=== PATIENT | male | born 1955 | race Hispanic/Latino ===

== ENCOUNTER 2020-06-14 20:53 | Inpatient (IN) | payer OTHER, SELFPAY ==
--- NOTE | ~2020-06-14 | XR_ITS ---
XR chest 1V portable DATE: 06/14/2020 22:04 INDICATION: Hypoxia. Covid 19 positive. TECHNIQUE: Portable AP chest on 06/14/2020 at 2156 hours COMPARISON: None FINDINGS: There are patchy infiltrates involving primarily the mid and lower lung zones, right greate r than left. There is mild elevation of right leaf of diaphragm. Normal heart size. There is aortic unfolding. No hilar or mediastinal enlargement is evident. No pleu ral effusion or pneumothorax. Degenerative spurring of the thoracic spine. IMPRESSION: Patchy bilateral infiltrates Reviewed, dictated and finalized at location A. [facility]
--- NOTE | 2020-06-14 20:56 | ED.SOB ---
HPI - SOB/Dyspnea General Chief Complaint: Shortness of Breath/Dyspnea Stated Complaint: resp distress Time Seen by Provider: 06/14/20 20:56 Source: patient, family and EMS Mode of arrival: EMS Limitations: no limitations History of Present Illness HPI Narrative: The patient is a 64 yo male with a history of HTN who presents to the ER for evaluation of worsening shortness of breath in the setting of COVID diagnosis. Patient with positive COVID swab on 06/11, and patient with increased shortness of breath over the past two days. Patient has had two days of worsening dry cough. Pt has had intermittent fever at night. He is denying chest pain, abdominal pain. No nausea or vomiting. Pt with numerous sick contacts with COVID at home including his and daughters. Pt has been tolerating oral intake at home. No rashes. No diarrhea. Contact for patient is daughter Christi, . Related Data Allergies Allergy/AdvReac Type Severity Reaction Status Date / Time No Known Allergies Allergy Verified 06/14/20 21:24 Review of Systems Review of Systems: Narrative: CONSTITUTIONAL: Intermittent fever and chills EYES: Denies visual changes, redness, or discharge. ENT: Denies rhinorrhea, congestion, sore throat, or otalgia. CARDIOVASCULAR: Denies chest pain, palpitations, or edema. RESPIRATORY: Reports dry cough and shortness of breath GASTROINTESTINAL: Denies abdominal pain, nausea, vomiting, or diarrhea. GENITOURINARY: Denies dysuria or hematuria. SKIN: Denies rash or itching. MUSCULOSKELETAL: Denies back pain, joint pain, or myalgia. NEUROLOGIC: Denies headache, numbness, reports feeling diffusely weak PMFSH Past Medical History Medical History (Updated 06/14/20 @ 21:32 by Laurie Keating MD) Hypertension Prostate cancer Surgical History Surgical History (Updated 06/14/20 @ 21:26 by Laurie Keating MD) H/O prostatectomy Social History Social History (Updated 06/14/20 @ 21:26 by Laurie Keating MD) Smoking status: Never smoker Alcohol intake: never Substance use: never Living arrangements: with family Gender identity (if verbalized by the patient): Male Exam Narrative: Exam Narrative: GENERAL: Awake, alert HEAD: Normocephalic, atraumatic. EYES: 2+ PERRLA and EOMI. ENT: Nares clear, no rhinorrhea or epistaxis. Mucous membranes dry. NECK: Supple. CHEST: Oxygen saturation is 86% room air, patient is tachycardic, tachypneic, no audible wheezing, no use of accessory muscles to breathe HEART: Tachycardic rate, sinus rhythm ABDOMEN:Non distended, non tender EXTREMITIES: Normal range of motion. No edema. SKIN: Warm, dry, no rash. NEURO:No focal deficits. Alert and oriented x3 Course Vital Signs Vital signs: Vital Signs Temperature 37.2 C 06/14/20 21:00 Pulse Rate 122 H 06/14/20 21:00 Respiratory Rate 36 H 06/14/20 21:00 Blood Pressure 137/94 H 06/14/20 21:00 Pulse Oximetry 86 L 06/14/20 21:00 Temperature 37.2 C 06/14/20 21:00 Pulse Rate 91 06/14/20 23:08 Respiratory Rate 33 H 06/14/20 23:08 Blood Pressure 121/83 06/14/20 23:08 Pulse Oximetry 93 06/14/20 23:08 MDM - SOB/Dyspnea MDM Narrative Medical decision making narrative: Patient is a 64-year-old gentleman with history of hypertension who presented for evaluation of shortness of breath in the setting of a recent Covid diagnosis. At the time of assessment, patient is hypoxic, tachypneic, tachycardic. No hypotension. Patient was placed on 4 L oxygen via nasal cannula, was able to be titrated down to 2 L and will maintain oxygen saturations above 93%. Pt remains tachypneic, however this is also improved. Patient was given IV fluids, although he did meet criteria for sepsis, I did not give a 30 mL/kg fluid bolus given we know that more judicious fluids should be given in the setting of Covid. In setting of known viral infection, pt not given antibiotics. No lactic acidosis. Patient has no leukocytosis. He has pa
[2020-06-14 21:00] VITALS: BP 137/94; PULSE 122; RESP 36; TEMP 37.2; O2SAT 86
--- NOTE | 2020-06-14 21:16 | ECG_ITS ---
Measurements Intervals [place] Rate: 109 P: 30 MO: 188 QRS: 12 QRSD: 86 T: 3 QT: 311 QTc: 419 Interpretive Statements SINUS TACHYCARDIA BORDERLINE T WAVE ABNORMALITY- INFERIOR LEADS BASELINE ARTIFACT- V3 ABNORMAL ECG Electronically Signed On 06-15-2020 8:04:59 PIPE TESTER by Jose Erazo D.O.
[2020-06-14] MEDS: SODIUM CHLORIDE 0.9% IV 500 ML 999 ML IV CONT (21:25)
[2020-06-14 21:44] LABS: Alveolar/Arterial O2 Gradient 203.9 mmHg; Base Excess ABG 2.8 mEq/l (+/-2.0); Carboxyhemoglobin 0.8 % THb (0-2.0); Fractional Inspired Oxygen 44 %; HCO3 ABG 25.5 mEq/l (22.0-26.0); Methemoglobin ABG 0.6 %THb (0-1.5); Oxygen Saturation ABG 95.6 % (95.0-100.0); Oxyhemoglobin 93.7 % THb (90.0-100.0); PCO2 ABG 33.8 mmHg (35.0-45.0); PO2 ABG 71.3 mmHg (80.0-100.0); PO2 FiO2 Ratio Arterial Blood 1.62 %; Reduced Hemoglobin 4.9 %THb (0-5.0); Total Hemoglobin 14.4 g/dL (12.0-18.0); pH ABG 7.496 (7.350-7.450)
[2020-06-14 21:45] LABS: Device NASAL CANNULA; Modified Allen's Test Pass; Site Drawn LEFT RADIAL
[2020-06-14 21:48] LABS: Basophils Percent Auto 0.2 % (0.2-1.2); Hemoglobin 14.9 g/dL (14.0-18.0); Immature Granulocyte Absolute 0.05 K/mm3 (0.00-0.031); Immature Granulocyte Percent A 0.8 % (0-0.5); Lymphocytes Percent Auto 12.4 % (18.3-44.2); Mean Corpuscular HGB Conc 34.7 g/dl (32-36); Mean Corpuscular Hemoglobin 30.2 pg (26-34); Mean Corpuscular Volume 87.2 fl (80-100); Mean Platelet Volume 9.7 fl (7.4-10.4); Monocytes Absolute Auto 0.5 K/mm3 (0.1-0.6); Monocytes Percent Auto 7.1 % (2.6-8.5); Neutrophils Absolute Auto 5.2 K/mm3 (1.3-6.7); Neutrophils Percent Auto 79.5 % (45.5-73.1); Platelet Count Result 246 k/mm3 (150-375); Red Blood Count 4.93 M/mm3 (4.6-6.20); Red Cell Distribution Width 12.4 % (11.5-14.5); White Blood Count 6.5 K/mm3 (4.5-10.0)
[2020-06-14 21:57] LABS: INR 1.1; Prothrombin Time 14.3 Seconds (11.1-14.7)
[2020-06-14 21:58] LABS: Partial Thromboplastin Time 37.2 SECONDS (22.3-36.8)
[2020-06-14 22:02] LABS: Lactic Acid Reflex 1.4 mmol/L (0.7-2.1)
[2020-06-14 22:09] LABS: Alanine Aminotransferase 98 U/L (4-50); Albumin Level 3.8 g/dL (3.5-5.1); Alkaline Phosphatase 91 U/L (38-126); Anion Gap 9 mmol/L (8-16); Aspartate Amino Transferase 140 U/L (17-59); Blood Urea Nitrogen 19 mg/dL (9-20); Calcium 8.5 mg/dL (8.4-10.2); Carbon Dioxide 27 mmol/L (22-30); Chloride 96 mmol/L (98-107); Estimated CRCL calculation 75 ml/min; Estimated Glomerular Filt Rate > 60; Glucose 134 mg/dL (75-110); Lactate Dehydrogenase 1292 U/L (313-618); Potassium 4.1 mmol/L (3.4-5.0); Sodium 132 mmol/L (137-145)
[2020-06-14 22:14] LABS: NT Pro B Type Natriuretic Pept 113 PG/ML (5-100); Troponin I < 0.012 ng/mL (0.000-0.034)
[2020-06-14 22:59] LABS: CRP 30.8 mg/dL (<1.0)
[2020-06-14 23:08] VITALS: BP 121/83; PULSE 91; RESP 33; O2SAT 93
[2020-06-14 23:29] LABS: Add Urine Microscopic? YES; Appearance Urine Clear (Clear); Bilirubin Urine Negative (Negative); Blood Urine Negative (Negative); Color Urine Amber (Yellow); Glucose Urine UA Negative (Negative); Ketones Urine Negative (Negative); Leukocyte Esterase Ur Negative LEU/UL (Negative); Mucus Urine Moderate /lpf; Nitrate Urine Negative (Negative); Protein Urine 2+ mg/dL (Negative); RBC Urine 0-2 /hpf (0-2); Squamous Epithelial Cell Urine Rare /hpf (Few); WBC Urine 0-3 /hpf
[2020-06-14 23:43] VITALS: BP 114/73; PULSE 87; RESP 28; TEMP 36.9; O2SAT 94
[2020-06-15] VITALS (17 sets, daily range): BP systolic 119–144; BP diastolic 65–91; PULSE 69–108; RESP 16–28; TEMP 36.4–36.9; O2SAT 90–96
--- NOTE | 2020-06-15 01:03 | ADMGEN ---
This patient, Phil Solis, was admitted to [facility] Surg Room 324-01. Patient/family oriented to hospital policies and general routines including ID bracelet, bed and alarms, visiting hours, pain management, procedures, bathroom and other care routines, personal items, smoking policy, room service/diet, and visiting hours. Information on how to activate the Rapid Response Team has been discussed. Patient/Family are encouraged to report perceived risks to care and to ask questions if they do not understand what they are told or what they should do.
--- NOTE | 2020-06-15 01:16 | PM.IMHP ---
H&P: HPI History of Present Illness Date/Time: 06/15/20 01:16 Chief complaint: COVID 19 Pneumonia,Hypoxic Respiratory Failure Narrative: This is a 64-year-old male with very limited Maori-speaking who is known to have hypertension and hyperlipidemia presented to the hospital with a complaint increased shortness of breath and a poorly productive cough. The patient was recently diagnosed with COVID-19 on June 11, 2020 and over the past couple of days he has had increased worsening shortness of breath. Associated symptoms include diaphoresis, generalized weakness, and intermittent fevers. He can't tell me exactly how many days he has been sick but he believes that is less than 10 days. He reports that multiple family members at home are sick with COVID-19. Tonight he denies any chest pain, abdominal pain, nausea, vomiting, dysuria, hematuria, diarrhea, rectal bleeding, or lower extremity swelling. He denies any past history of tobacco use and he used to drink alcohol but states that he quit drinking 2 years ago. The patient was evaluated emergency room this evening and found to be hypoxic on room air. He was placed on 2 L of oxygen via nasal cannula and treated with bronchodilators and dexamethasone. The patient states he is feeling a little bit better now. He has no other complaints at this time we been asked admit the patient to the hospital for further care. Review of Systems Review of Systems: All systems reviewed & are unremarkable except as noted in HPI and below PMFSH Past Medical History Medical History Hyperlipidemia Hypertension Prostate cancer Surgical History Surgical History H/O prostatectomy Family History Family History Mother Hypertension Father Hypertension Social History Social History Smoking status: Never smoker Alcohol intake: never Substance use: never Substance use type: does not use Living arrangements: with family Gender identity (if verbalized by the patient): Male Sexual Orientation (if Verbalized by the Patient): Straight or Heterosexual Spiritual care concerns: No Meds Home Medications and Allergies Home Medications Medication Instructions Recorded Confirmed Type lisinopril 10 mg PO DAILY 06/15/20 06/15/20 History meloxicam 7.5 mg PO DAILY 06/15/20 06/15/20 History simvastatin 20 mg PO DAILY 06/15/20 06/15/20 History Allergies Allergy/AdvReac Type Severity Reaction Status Date / Time No Known Allergies Allergy Verified 06/15/20 00:52 Vital Signs Vital Signs - 24 hr 06/14/20 21:00 06/14/20 23:08 06/14/20 23:43 Temperature 37.2 C 36.9 C Pulse Rate 122 H 91 87 Respiratory Rate 36 H 33 H 28 H Blood Pressure 137/94 H 121/83 114/73 Pulse Oximetry 86 L 93 94 06/15/20 00:22 06/15/20 01:12 Temperature 36.9 C Pulse Rate 94 Respiratory Rate 28 H Blood Pressure 119/78 Pulse Oximetry 94 93 Exam Const: General: cooperative, alert, awake, diaphoretic, ill appearing, tired appearing and uncomfortable Nutritional Appearance: obese Orientation/consciousness: patient oriented x3 HENMT: Head: normal to inspection General nose exam: Normal external nose present Face and sinus: normal facial exam Mouth: Yes Normal oral and palatal mucosa present and Yes oropharynx normal Eyes: Pupils: Equal, round and reactive pupils present EOM: EOMs intact bilaterally Neck: Neck: supple and no JVD Thyroid: thyroid normal Lymphatic: lymphadenopathy not noted Resp: Effort & Inspection: normal respiratory effort Auscultation: diminished lung sounds Cardio: Rate: regular rate Rhythm: regular rhythm Heart sounds: no murmurs GI: Inspection: normal to inspection Auscultation: normal bowel sounds Skin: General skin exam: normal
[2020-06-15] MEDS: REMDESIVIR 200 MG/NS 250 ML 200 MG/250 ML BAG 250 MG IVPB (04:20)
[2020-06-15 08:16] LABS: Basophils Percent Auto 0.4 % (0.2-1.2); Eosinophils Absolute Auto 0.1 K/mm3 (0-0.3); Eosinophils Percent Auto 1.2 % (0-4.4); Hematocrit 46.7 % (42.0-52.0); Hemoglobin 16.3 g/dL (14.0-18.0); Immature Granulocyte Absolute 0.05 K/mm3 (0.00-0.031); Immature Platelet Fraction Pct 5.2 % (0.9-11.2); Lymphocytes Absolute Auto 0.63 K/mm3 (0.9-3.2); Mean Corpuscular HGB Conc 34.9 g/dl (32-36); Mean Corpuscular Hemoglobin 30.9 pg (26-34); Mean Corpuscular Volume 88.4 fl (80-100); Mean Platelet Volume 11.4 fl (7.4-10.4); Monocytes Absolute Auto 0.2 K/mm3 (0.1-0.6); Monocytes Percent Auto 3.7 % (2.6-8.5); Neutrophils Absolute Auto 3.9 K/mm3 (1.3-6.7); Neutrophils Percent Auto 80.7 % (45.5-73.1); Platelet Count Result 227 k/mm3 (150-375); Red Blood Count 5.28 M/mm3 (4.6-6.20); Red Cell Distribution Width 12.6 % (11.5-14.5); White Blood Count 4.8 K/mm3 (4.5-10.0)
[2020-06-15] MEDS: ENOXAPARIN 40 MG/0.4 ML SYRINGE SUB-Q (09:32)
[2020-06-15] MEDS: lisinopriL 10 MG TABLET PO (09:32)
[2020-06-15] MEDS: SIMVASTATIN 20 MG TABLET PO (09:32)
[2020-06-15 10:57] LABS: Influenza Control Positive
[2020-06-15 11:18] LABS: Anion Gap 14 mmol/L (8-16); Blood Urea Nitrogen 21 mg/dL (9-20); Carbon Dioxide 24 mmol/L (22-30); Chloride 99 mmol/L (98-107); Estimated CRCL calculation 83 ml/min; Estimated Glomerular Filt Rate > 60; Glucose 238 mg/dL (75-110); Magnesium 2.4 mg/dL (1.6-2.3); Potassium 3.7 mmol/L (3.4-5.0); Sodium 137 mmol/L (137-145)
[2020-06-15 11:53] LABS: Alanine Aminotransferase 93 U/L (4-50)
--- NOTE | 2020-06-15 12:37 | P.PNIM_ITS ---
Progress Note: A&P Assessment and Plan (1) Respiratory failure with hypoxia: Qualifiers: Chronicity: acute Qualified Code(s): J96.01 - Acute respiratory failure with hypoxia <Sheri Jitendra. Fraciscoac, PA-C - Last Filed: 06/15/20 13:06> Code(s): J96.91 - Respiratory failure, unspecified with hypoxia <Sheri Serge Stimac, PA-C - Last Filed: 06/15/20 13:06> Status: Acute <Sheri Serge Stimac, PA-C - Last Filed: 06/15/20 13:06> Assessment and Plan: At presentation, patient noted to be hypoxic at 86%. Secondary to COVID-19 pneumonia. Influenza negative. * Continue supplemental O2 as needed with goal saturation 90% or above. Wean to goal. * Continue with treatment for COVID-19 as detailed below. <Sheri JitendraTiffany Stimac, PA-C - Last Filed: 06/15/20 13:06> (2) Pneumonia due to 2019 novel coronavirus: Code(s): U07.1 - COVID-19; J12.89 - Other viral pneumonia <Sheri J. Stimac, PA-C - Last Filed: 06/15/20 13:06> Status: Acute <Sheri Serge Stimac, PA-C - Last Filed: 06/15/20 13:06> Assessment and Plan: Patient had been having symptoms ongoing approximately 3 days prior to presentation. Tested positive on 06/14/2020. Chest x-ray showed patchy bilateral infiltrates consistent with COVID-19. he is maintaining adequate oxygen saturations on 4 L per nasal cannula. He has been removing the nasal cannula frequently and I instructed him to leave this on. * Continue isolation precautions * continue Remdesivir for up to 5 days. Started on 06/15 * continue dexamethasone for up to 10 days. Started on 06/14. * Supportive care with bronchodilators, expectorants, and antipyretics. * supplemental O2 as above. Wean to goal. * Trend acute phase reactants <Sheri JitendraTiffany Fraciscoac, PA-C - Last Filed: 06/15/20 13:06> (3) Elevated liver enzymes: Code(s): R74.8 - Abnormal levels of other serum enzymes <Sheri J. Stimac, PA-C - Last Filed: 06/15/20 13:06> Status: Acute <JENELLE Cintron-C - Last Filed: 06/15/20 13:06> Assessment and Plan: Likely secondary to COVID-19 virus. ALT is mildly elevated, but less than 2x upper limit of normal and improving. LFTs will be monitored closely in light of remdesivir therapy and will be stopped should ALT exceed 5x upper limit of normal. Patient has no signs or symptoms of liver injury. Total bili is wnl. <YANCI CintronC - Last Filed: 06/15/20 13:06> (4) Hyperlipidemia: Qualifiers: Hyperlipidemia type: unspecified Qualified Code(s): E78.5 - Hyperlipidemia, unspecified <JENELLE Cintron-C - Last Filed: 06/15/20 13:06> Code(s): E78.5 - Hyperlipidemia, unspecified <JENELLE Cintron-C - Last Filed: 06/15/20 13:06> Status: Chronic <JENELLE Cintron-C - Last Filed: 06/15/20 13:06> Assessment and Plan: Continue simvastatin PO. <JENELLE Cintron-C - Last Filed: 06/15/20 13:06> (5) Hypertension: Qualifiers: Hypertension type: unspecified Qualified Code(s): I10 - Essential (primary) hypertension <YANCI CintronC - Last Filed: 06/15/20 13:06> Code(s): I10 - Essential (primary) hypertension <Sheri Moody JENELLE-C - Last Filed: 06/15/20 13:06> Status: Chronic <JENELLE Cintron-C - Last Filed: 06/15/20 13:06> Assessment and Plan: Blood pressure evaluated today and is stable at 144/89. * Continue lisinopril <Sheri Moody JENELLE-C - Last Filed: 06/15/20 13:06> (6) Generalized weakness: Code(s): R53.1
--- NOTE | 2020-06-15 12:37 | PM.IMPN ---
Progress Note: A&P Assessment and Plan (1) Respiratory failure with hypoxia: Qualifiers: Chronicity: acute Qualified Code(s): J96.01 - Acute respiratory failure with hypoxia <Sheri Moody, PA-C - Last Filed: 06/15/20 13:06> Code(s): J96.91 - Respiratory failure, unspecified with hypoxia <Sheridanika Moody, PA-C - Last Filed: 06/15/20 13:06> Status: Acute <Sheri Moody, PA-C - Last Filed: 06/15/20 13:06> Assessment and Plan: At presentation, patient noted to be hypoxic at 86%. Secondary to COVID-19 pneumonia. Influenza negative. Continue supplemental O2 as needed with goal saturation 90% or above. Wean to goal. Continue with treatment for COVID-19 as detailed below. <Sheri HamTiffany Fransisco, PA-C - Last Filed: 06/15/20 13:06> (2) Pneumonia due to 2019 novel coronavirus: Code(s): U07.1 - COVID-19; J12.89 - Other viral pneumonia <Sheri Serge Yapac, PA-C - Last Filed: 06/15/20 13:06> Status: Acute <Sheri Moody, PA-C - Last Filed: 06/15/20 13:06> Assessment and Plan: Patient had been having symptoms ongoing approximately 3 days prior to presentation. Tested positive on 06/14/2020. Chest x-ray showed patchy bilateral infiltrates consistent with COVID-19. he is maintaining adequate oxygen saturations on 4 L per nasal cannula. He has been removing the nasal cannula frequently and I instructed him to leave this on. Continue isolation precautions continue Remdesivir for up to 5 days. Started on 06/15 continue dexamethasone for up to 10 days. Started on 06/14. Supportive care with bronchodilators, expectorants, and antipyretics. supplemental O2 as above. Wean to goal. Trend acute phase reactants <Sheri HamTiffany Fraciscoelyse, PA-C - Last Filed: 06/15/20 13:06> (3) Elevated liver enzymes: Code(s): R74.8 - Abnormal levels of other serum enzymes <Sheri HamTiffany Fraciscoelyse, PA-C - Last Filed: 06/15/20 13:06> Status: Acute <Sheri YapJENELLE pappas-C - Last Filed: 06/15/20 13:06> Assessment and Plan: Likely secondary to COVID-19 virus. ALT is mildly elevated, but less than 2x upper limit of normal and improving. LFTs will be monitored closely in light of remdesivir therapy and will be stopped should ALT exceed 5x upper limit of normal. Patient has no signs or symptoms of liver injury. Total bili is wnl. <Sheri Valentine YANCI MoodyC - Last Filed: 06/15/20 13:06> (4) Hyperlipidemia: Qualifiers: Hyperlipidemia type: unspecified Qualified Code(s): E78.5 - Hyperlipidemia, unspecified <Sheri Valentine JENELLE Moody-C - Last Filed: 06/15/20 13:06> Code(s): E78.5 - Hyperlipidemia, unspecified <Sheri Valentine JENELLE Moody-C - Last Filed: 06/15/20 13:06> Status: Chronic <Sheri Valentine JENELLE Moody-C - Last Filed: 06/15/20 13:06> Assessment and Plan: Continue simvastatin PO. <Sheri HamJENELLE Garza-C - Last Filed: 06/15/20 13:06> (5) Hypertension: Qualifiers: Hypertension type: unspecified Qualified Code(s): I10 - Essential (primary) hypertension <Sheri HamJENELLE Garza-C - Last Filed: 06/15/20 13:06> Code(s): I10 - Essential (primary) hypertension <Sheri HamJENELLE Garza-C - Last Filed: 06/15/20 13:06> Status: Chronic <Sheri YapJENELLE pappas-C - Last Filed: 06/15/20 13:06> Assessment and Plan: Blood pressure evaluated today and is stable at 144/89. Continue lisinopril <Sheri JitendraJENELLE Garza-C - Last Filed: 06/15/20 13:06> (6) Generalized weakness: Code(s): R53.1 - Weakness <Sheri JitendraJENELLE Garza-C - Last Filed: 06/15/20 13:06> Status: Acute <Sheri Serge Moody PA-C - Last Filed: 06/15/20 13:06> Assessment and Plan: Patient's daughter notes that he has been quite weak since onset of symptoms. Likely secondary to acute viral infection. Patient himself denies concerns. Sarah
[2020-06-15] MEDS: DEXAMETHASONE SOD PHOS INJ 4 MG/ML VIAL 6 MG IV PUSH (13:14)
[2020-06-16] VITALS (17 sets, daily range): BP systolic 109–142; BP diastolic 69–80; PULSE 75–104; RESP 18–22; TEMP 36.1–36.5; O2SAT 90–94
[2020-06-16] MEDS: REMDESIVIR 100 MG/NS 250 ML 100 MG/250 ML BAG 250 MG IVPB (05:35)
[2020-06-16 06:30] LABS: Hematocrit 41.4 % (42.0-52.0); Mean Corpuscular HGB Conc 33.8 g/dl (32-36); Mean Corpuscular Hemoglobin 29.9 pg (26-34); Mean Corpuscular Volume 88.5 fl (80-100); Mean Platelet Volume 9.5 fl (7.4-10.4); Platelet Count Result 309 k/mm3 (150-375); Red Blood Count 4.68 M/mm3 (4.6-6.20); Red Cell Distribution Width 12.4 % (11.5-14.5); White Blood Count 9.8 K/mm3 (4.5-10.0)
[2020-06-16 08:51] LABS: Alanine Aminotransferase 75 U/L (4-50); Albumin Level 3.5 g/dL (3.5-5.1); Alkaline Phosphatase 75 U/L (38-126); Anion Gap 7 mmol/L (8-16); Aspartate Amino Transferase 66 U/L (17-59); Bilirubin,Total 0.6 mg/dL (0.2-1.3); Blood Urea Nitrogen 28 mg/dL (9-20); CRP 17.4 mg/dL (<1.0); Calcium 8.7 mg/dL (8.4-10.2); Carbon Dioxide 30 mmol/L (22-30); Chloride 100 mmol/L (98-107); Estimated CRCL calculation 92 ml/min; Estimated Glomerular Filt Rate > 60; Glucose 182 mg/dL (75-110); Lactate Dehydrogenase 792 U/L (313-618); Sodium 137 mmol/L (137-145)
[2020-06-16] MEDS: DEXAMETHASONE SOD PHOS INJ 4 MG/ML VIAL 6 MG IV PUSH (09:25)
[2020-06-16] MEDS: ENOXAPARIN 40 MG/0.4 ML SYRINGE SUB-Q (09:25)
[2020-06-16] MEDS: lisinopriL 10 MG TABLET PO (09:25)
[2020-06-16 12:08] LABS: Hemoglobin A1C 5.7 % (<5.7)
--- NOTE | 2020-06-16 15:51 | P.PNIM_ITS ---
Progress Note: A&P Assessment and Plan (1) Respiratory failure with hypoxia: Qualifiers: Chronicity: acute Qualified Code(s): J96.01 - Acute respiratory failure with hypoxia <Sheridanika Moody, PA-C - Last Filed: 06/16/20 16:02> Code(s): J96.91 - Respiratory failure, unspecified with hypoxia <Sheri Serge Yapac, PA-C - Last Filed: 06/16/20 16:02> Status: Acute <Sheri Serge Stimac, PA-C - Last Filed: 06/16/20 16:02> Assessment and Plan: At presentation, patient noted to be hypoxic at 86%. [place] to be secondary to COVID-19 pneumonia. Influenza negative. * Continue supplemental O2 as needed with goal saturation 90% or above. Wean to goal. * Continue with treatment for COVID-19 as detailed below. <Sheri HamTiffany Fransisco, PA-C - Last Filed: 06/16/20 16:02> (2) Pneumonia due to 2019 novel coronavirus: Code(s): U07.1 - COVID-19; J12.89 - Other viral pneumonia <Sheri Serge Stimac, PA-C - Last Filed: 06/16/20 16:02> Status: Acute <Sheridanika Yapac, PA-C - Last Filed: 06/16/20 16:02> Assessment and Plan: Patient had been having symptoms ongoing approximately 3 days prior to presentation. Tested positive on 06/14/2020. Chest x-ray showed patchy bilateral infiltrates consistent with COVID-19. He is maintaining adequate oxygen saturations on 4 L per nasal cannula. * Continue isolation precautions * continue Remdesivir for up to 5 days. Started on 06/15 * continue dexamethasone for up to 10 days. Started on 06/14. * Supportive care with bronchodilators, expectorants, and antipyretics. * supplemental O2 as above. Wean to goal. * Trend acute phase reactants <Sheri HamTiffany Fraciscoelyse, PA-C - Last Filed: 06/16/20 16:02> (3) Elevated liver enzymes: Code(s): R74.8 - Abnormal levels of other serum enzymes <Sheri J. Fraciscoac, PA-C - Last Filed: 06/16/20 16:02> Status: Acute <JENELLE Cintron-C - Last Filed: 06/16/20 16:02> Assessment and Plan: Likely secondary to COVID-19 virus. ALT is mildly elevated, but less than 2x upper limit of normal and has improved. LFTs will be monitored closely in light of remdesivir therapy and will be stopped should ALT exceed 5x upper limit of normal. Patient has no signs or symptoms of liver injury. Total bili is wnl. <Sheri Moody JENELLE-C - Last Filed: 06/16/20 16:02> (4) Hyperlipidemia: Qualifiers: Hyperlipidemia type: unspecified Qualified Code(s): E78.5 - Hyperlipidemia, unspecified <Sheri Moody JENELLE-C - Last Filed: 06/16/20 16:0 2> Code(s): E78.5 - Hyperlipidemia, unspecified <Sheri Moody JENELLE-C - Last Filed: 06/16/20 16:02> Status: Chronic <Sheri Moody JENELLE-C - Last Filed: 06/16/20 16:02> Assessment and Plan: Continue simvastatin PO. <Sheri Moody JENELLE-C - Last Filed: 06/16/20 16:02> (5) Hypertension: Qualifiers: Hypertension type: unspecified Qualified Code(s): I10 - Essential (primary) hypertension <Sheri Moody JENELLE-C - Last Filed: 06/16/20 16:02> Code(s): I10 - Essential (primary) hypertension <Sheri Yapelyse JENELLE-C - Last Filed: 06/16/20 16:02> Status: Chronic <Sheri Moody JENELLE-C - Last Filed: 06/16/20 16:02> Assessment and Plan: Blood pressure evaluated today and is stable at 142/80. * Continue lisinopril <Sheri Yapelyse JENELLE-C - Last Filed: 06/16/20 16:02> (6) Generalized weakness: Code(s): R53.1 - Weakness <Sheri Yapelyse JENELLE-C - Last Filed: 06/16/20 16:02>
--- NOTE | 2020-06-16 15:51 | PM.IMPN ---
Progress Note: A&P Assessment and Plan (1) Respiratory failure with hypoxia: Qualifiers: Chronicity: acute Qualified Code(s): J96.01 - Acute respiratory failure with hypoxia <Sheri JTiffany Fraciscoelyse, PA-C - Last Filed: 06/16/20 16:02> Code(s): J96.91 - Respiratory failure, unspecified with hypoxia <Sheri JitendraTiffany Stimac, PA-C - Last Filed: 06/16/20 16:02> Status: Acute <Sheri Serge Stimac, PA-C - Last Filed: 06/16/20 16:02> Assessment and Plan: At presentation, patient noted to be hypoxic at 86%. [place] to be secondary to COVID-19 pneumonia. Influenza negative. Continue supplemental O2 as needed with goal saturation 90% or above. Wean to goal. Continue with treatment for COVID-19 as detailed below. <Sheri JitendraTiffany Moody, PA-C - Last Filed: 06/16/20 16:02> (2) Pneumonia due to 2019 novel coronavirus: Code(s): U07.1 - COVID-19; J12.89 - Other viral pneumonia <Sheri JitendraTiffany Stimac, PA-C - Last Filed: 06/16/20 16:02> Status: Acute <Sheri JitendraTiffany Stimac, PA-C - Last Filed: 06/16/20 16:02> Assessment and Plan: Patient had been having symptoms ongoing approximately 3 days prior to presentation. Tested positive on 06/14/2020. Chest x-ray showed patchy bilateral infiltrates consistent with COVID-19. He is maintaining adequate oxygen saturations on 4 L per nasal cannula. Continue isolation precautions continue Remdesivir for up to 5 days. Started on 06/15 continue dexamethasone for up to 10 days. Started on 06/14. Supportive care with bronchodilators, expectorants, and antipyretics. supplemental O2 as above. Wean to goal. Trend acute phase reactants <Sheri JitendraTiffany Fraciscoelyse, PA-C - Last Filed: 06/16/20 16:02> (3) Elevated liver enzymes: Code(s): R74.8 - Abnormal levels of other serum enzymes <Sheri J. Stimac, PA-C - Last Filed: 06/16/20 16:02> Status: Acute <Sheri J. Stimac, PA-C - Last Filed: 06/16/20 16:02> Assessment and Plan: Likely secondary to COVID-19 virus. ALT is mildly elevated, but less than 2x upper limit of normal and has improved. LFTs will be monitored closely in light of remdesivir therapy and will be stopped should ALT exceed 5x upper limit of normal. Patient has no signs or symptoms of liver injury. Total bili is wnl. <Sheri JTiffany Moody PA-C - Last Filed: 06/16/20 16:02> (4) Hyperlipidemia: Qualifiers: Hyperlipidemia type: unspecified Qualified Code(s): E78.5 - Hyperlipidemia, unspecified <Sheri JitendraTiffany Moody PA-C - Last Filed: 06/16/20 16:02> Code(s): E78.5 - Hyperlipidemia, unspecified <Sheri HamYANCI GarzaC - Last Filed: 06/16/20 16:02> Status: Chronic <Sheri Moody PA-C - Last Filed: 06/16/20 16:02> Assessment and Plan: Continue simvastatin PO. <Sheri JitendraYANCI GarzaC - Last Filed: 06/16/20 16:02> (5) Hypertension: Qualifiers: Hypertension type: unspecified Qualified Code(s): I10 - Essential (primary) hypertension <Sheri Moody PA-C - Last Filed: 06/16/20 16:02> Code(s): I10 - Essential (primary) hypertension <YANCI CintronC - Last Filed: 06/16/20 16:02> Status: Chronic <Sheri JitendraYANCI GarzaC - Last Filed: 06/16/20 16:02> Assessment and Plan: Blood pressure evaluated today and is stable at 142/80. Continue lisinopril <Sheri Moody PA-C - Last Filed: 06/16/20 16:02> (6) Generalized weakness: Code(s): R53.1 - Weakness <YANCI CintronC - Last Filed: 06/16/20 16:02> Status: Acute <Sheri Moody PA-C - Last Filed: 06/16/20 16:02> Assessment and Plan: Patient's daughter notes that he has been quite weak since onset of symptoms. Likely secondary to acute viral infection. Patient himself denies concerns of weakness. Appreciate PT and OT eval. <Sheri Moody PA-C - Last Hardik
[2020-06-16] MEDS: SIMVASTATIN 20 MG TABLET PO (20:44)
[2020-06-17] VITALS (13 sets, daily range): BP systolic 117–129; BP diastolic 70–87; PULSE 80–104; RESP 18–22; TEMP 36.4–36.9; O2SAT 90–94
[2020-06-17] MEDS: REMDESIVIR 100 MG/NS 250 ML 100 MG/250 ML BAG 250 MG IVPB (05:33)
[2020-06-17 07:14] LABS: Hematocrit 42.4 % (42.0-52.0); Hemoglobin 14.5 g/dL (14.0-18.0); Mean Corpuscular HGB Conc 34.2 g/dl (32-36); Mean Corpuscular Hemoglobin 30.6 pg (26-34); Mean Corpuscular Volume 89.5 fl (80-100); Mean Platelet Volume 9.3 fl (7.4-10.4); Platelet Count Result 366 k/mm3 (150-375); Red Blood Count 4.74 M/mm3 (4.6-6.20); Red Cell Distribution Width 12.6 % (11.5-14.5)
[2020-06-17 07:59] LABS: Alanine Aminotransferase 66 U/L (4-50); Albumin Level 3.6 g/dL (3.5-5.1); Alkaline Phosphatase 76 U/L (38-126); Aspartate Amino Transferase 50 U/L (17-59); Bilirubin,Total 0.7 mg/dL (0.2-1.3); Blood Urea Nitrogen 24 mg/dL (9-20); Calcium 8.6 mg/dL (8.4-10.2); Carbon Dioxide 30 mmol/L (22-30); Estimated CRCL calculation 83 ml/min; Estimated Glomerular Filt Rate > 60; Glucose 131 mg/dL (75-110); Lactate Dehydrogenase 730 U/L (313-618)
[2020-06-17 08:39] LABS: Anion Gap 7 mmol/L (8-16); Chloride 102 mmol/L (98-107); Potassium 4.1 mmol/L (3.4-5.0); Sodium 139 mmol/L (137-145)
[2020-06-17] MEDS: ENOXAPARIN 40 MG/0.4 ML SYRINGE SUB-Q ×2 (09:10→20:18)
[2020-06-17] MEDS: DEXAMETHASONE SOD PHOS INJ 4 MG/ML VIAL 6 MG IV PUSH (09:10)
[2020-06-17] MEDS: lisinopriL 10 MG TABLET PO (09:10)
--- NOTE | 2020-06-17 13:58 | PM.IMPN ---
Progress Note: A&P Assessment and Plan (1) Respiratory failure with hypoxia: Qualifiers: Chronicity: acute Qualified Code(s): J96.01 - Acute respiratory failure with hypoxia Code(s): J96.91 - Respiratory failure, unspecified with hypoxia Status: Acute Assessment and Plan: Secondary to COVID-19 pneumonia. Admit to med-surg, Continue oxygen supplementation. Continuous pulse oximetry. Wean off of oxygen when possible. Continue treatment for COVID-19. Monitor ABG. RT assess and treat. 06/17/20 13:58 Patient is 64-year-old [place] male who initially exposed to COVID-19 on June 01 develops symptoms and was tested on June 04 and was positive, he came to emergency department on June 14 with hypoxia with oxygen saturation on the room air of 86%, he was started on Remdesivir on 06/15 today 09/21 and dexamethasone 06/15 today 09/26, he has not not have fever since arrival and initially he was placed on 6 L of oxygen and today patient is without oxygen moving alone in the room without any difficulty, patient only speaks Gren[place], he does not appear in any distress, I have spoken to his daughter who speaks Armenian, if the patient remains clinically stable and not requiring any oxygen we will possibly discharge the patient home tomorrow, he does not need to be quarantine as he has been past to 14 days since he was diagnosed, they do need to follow universal precaution with mask and distancing of 6 feet. (2) Pneumonia due to 2019 novel coronavirus: Code(s): U07.1 - COVID-19; J12.89 - Other viral pneumonia Status: Acute Assessment and Plan: Continue droplet isolation. Xopenex scheduled and PRN for shortness of breath. Remdesivir and Dexamethasone. Check influenza. sputum culture. (3) Elevated liver enzymes: Code(s): R74.8 - Abnormal levels of other serum enzymes Status: Acute Assessment and Plan: Likely secondary to COVID-19 virus. Monitor LFTs. (4) Hyperlipidemia: Qualifiers: Hyperlipidemia type: unspecified Qualified Code(s): E78.5 - Hyperlipidemia, unspecified Code(s): E78.5 - Hyperlipidemia, unspecified Status: Chronic Assessment and Plan: Continue simvastatin PO. (5) Hypertension: Qualifiers: Hypertension type: unspecified Qualified Code(s): I10 - Essential (primary) hypertension Code(s): I10 - Essential (primary) hypertension Status: Chronic Assessment and Plan: Monitor blood pressure. Continue Lisinopril. Subjective Date/time seen: 06/17/20 13:58 Patient is 64-year-old [place] male who initially exposed to COVID-19 on June 01 develops symptoms and was tested on June 04 and was positive, he came to emergency department on June 14 with hypoxia with oxygen saturation on the room air of 86%, he was started on Remdesivir on 06/15 today 09/21 and dexamethasone 06/15 today 09/26, he has not not have fever since arrival and initially he was placed on 6 L of oxygen and today patient is without oxygen moving alone in the room without any difficulty, patient only speaks Gren[place], he does not appear in any distress, I have spoken to his daughter who speaks Armenian, if the patient remains clinically stable and not requiring any oxygen we will possibly discharge the patient home tomorrow, he does not need to be quarantine as he has been past to 14 days since he was diagnosed, they do need to follow universal precaution with mask and distancing of 6 feet. Review of Systems Review of Systems: ROS unobtainable: Yes unobtainable due to medical condition Objective Data Vital Signs Vital Signs: Vital Signs - 24 hr 06/16/20 14:36 06/16/20 14:46 06/16/20 16:00 Temperature 97.1 F L Pulse Rate 100 104 H 75 Respiratory Rate 18 18 22 H Blood Pressure 109/69 Pulse Oximetry 90 06/16/20 20:00 06/16/20 21:00 06/16/20 21:42 Temperature 97.6 F Pulse Rate 94 Respiratory Rate 20 Blood Pressure 123/76
--- NOTE | 2020-06-17 17:25 | PCRCNOTE ---
Window of time for administration has passed. See next scheduled administration.
[2020-06-17] MEDS: SIMVASTATIN 20 MG TABLET PO (20:18)
[2020-06-18] VITALS: BP 129/84; PULSE 97; RESP 20; TEMP 36.7; O2SAT 90
[2020-06-18 04:00] VITALS: BP 110/75; PULSE 85; RESP 20; TEMP 36.4; O2SAT 90
[2020-06-18] MEDS: REMDESIVIR 100 MG/NS 250 ML 100 MG/250 ML BAG 250 MG IVPB (05:31)
--- NOTE | 2020-06-18 07:02 | PC.NURSE ---
0000 Pt is refusing to wear his oxygen. O2 sat in low 90s.
[2020-06-18 07:05] VITALS: RESP 20; O2SAT 93
[2020-06-18 07:06] LABS: Hematocrit 45.3 % (42.0-52.0); Hemoglobin 15.6 g/dL (14.0-18.0); Mean Corpuscular HGB Conc 34.4 g/dl (32-36); Mean Corpuscular Hemoglobin 30.3 pg (26-34); Platelet Count Result 414 k/mm3 (150-375); Red Blood Count 5.15 M/mm3 (4.6-6.20); Red Cell Distribution Width 12.5 % (11.5-14.5)
--- NOTE | 2020-06-18 07:39 | PC.NURSE ---
0650 Pt was found ambulating in the [place]-fully dressed-coat and all. No O2 on. No respiratory distress. Wants to go home. I want to go to my house . Escorted pt back to his room. Saline lock still in place. O2 sat 93% on room air. Denies pain or distress. [employer] janitor caretaker device utilized. I called and spoke with his daughter Christi and explained the situation to her. She in turn spoke with the pt on the phone and convinced him to stay here until discharged later today. She will come pick him up at discharge. family worker, Milk Bottling Machine Operator and Director aware.
[2020-06-18 07:45] LABS: Alanine Aminotransferase 120 U/L (4-50); Albumin Level 3.9 g/dL (3.5-5.1); Alkaline Phosphatase 88 U/L (38-126); Anion Gap 7 mmol/L (8-16); Aspartate Amino Transferase 118 U/L (17-59); Bilirubin,Total 0.9 mg/dL (0.2-1.3); Blood Urea Nitrogen 24 mg/dL (9-20); CRP 5.6 mg/dL (<1.0); Carbon Dioxide 30 mmol/L (22-30); Chloride 104 mmol/L (98-107); Estimated CRCL calculation 83 ml/min; Estimated Glomerular Filt Rate > 60; Glucose 108 mg/dL (75-110); Sodium 141 mmol/L (137-145)
--- NOTE | 2020-06-18 07:50 | PM.DS ---
DS: Admitting Diagnosis Admitting Diagnosis Admitting Diagnosis: COVID 19 Pneumonia,Hypoxic Respiratory Failure DS: Discharge Diagnosis Discharge Diagnosis (1) Respiratory failure with hypoxia: Qualifiers: Chronicity: acute Qualified Code(s): J96.01 - Acute respiratory failure with hypoxia Code(s): J96.91 - Respiratory failure, unspecified with hypoxia Status: Acute Assessment and Plan: Secondary to COVID-19 pneumonia. Admit to med-surg, Continue oxygen supplementation. Continuous pulse oximetry. Wean off of oxygen when possible. Continue treatment for COVID-19. Monitor ABG. RT assess and treat. 06/17/20 13:58 Patient is 64-year-old Maldiv[place] male who initially exposed to COVID-19 on June 01 develops symptoms and was tested on June 04 and was positive, he came to emergency department on June 14 with hypoxia with oxygen saturation on the room air of 86%, he was started on Remdesivir on 06/15 today 3/5 and dexamethasone 06/15 today 3/10, he has not not have fever since arrival and initially he was placed on 6 L of oxygen and today patient is without oxygen moving alone in the room without any difficulty, patient only speaks [place]divian, he does not appear in any distress, I have spoken to his daughter who speaks Citizen [place], if the patient remains clinically stable and not requiring any oxygen we will possibly discharge the patient home tomorrow, he does not need to be quarantine as he has been past to 14 days since he was diagnosed, they do need to follow universal precaution with mask and distancing of 6 feet. (2) Pneumonia due to 2019 novel coronavirus: Code(s): U07.1 - COVID-19; J12.89 - Other viral pneumonia Status: Acute Assessment and Plan: Continue droplet isolation. Xopenex scheduled and PRN for shortness of breath. Remdesivir and Dexamethasone. Check influenza. sputum culture. (3) Elevated liver enzymes: Code(s): R74.8 - Abnormal levels of other serum enzymes Status: Acute Assessment and Plan: Likely secondary to COVID-19 virus. Monitor LFTs. (4) Hyperlipidemia: Qualifiers: Hyperlipidemia type: unspecified Qualified Code(s): E78.5 - Hyperlipidemia, unspecified Code(s): E78.5 - Hyperlipidemia, unspecified Status: Chronic Assessment and Plan: Continue simvastatin PO. (5) Hypertension: Qualifiers: Hypertension type: unspecified Qualified Code(s): I10 - Essential (primary) hypertension Code(s): I10 - Essential (primary) hypertension Status: Chronic Assessment and Plan: Monitor blood pressure. Continue Lisinopril. DS: Summary Hospital Course Reason for hospitalization: Chief complaint: COVID 19 Pneumonia,Hypoxic Respiratory Failure Narrative: This is a 64-year-old male with very limited Citizen [place]-speaking who is known to have hypertension and hyperlipidemia presented to the hospital with a complaint increased shortness of breath and a poorly productive cough. The patient was recently diagnosed with COVID-19 on June 11, 2020 and over the past couple of days he has had increased worsening shortness of breath. Associated symptoms include diaphoresis, generalized weakness, and intermittent fevers. He can't tell me exactly how many days he has been sick but he believes that is less than 10 days. He reports that multiple family members at home are sick with COVID-19. Tonight he denies any chest pain, abdominal pain, nausea, vomiting, dysuria, hematuria, diarrhea, rectal bleeding, or lower extremity swelling. He denies any past history of tobacco use and he used to drink alcohol but states that he quit drinking 2 years ago. The patient was evaluated emergency room this evening and found to be hypoxic on room air. He was placed on 2 L of oxygen via nasal cannula and treated with bronchodilators and dexamethasone. The patient states he is feeling a little bit better now. He has no other co
[2020-06-18 07:57] VITALS: O2SAT 88
[2020-06-18 08:00] VITALS: PULSE 85; RESP 20; O2SAT 88
[2020-06-18 08:17] LABS: Potassium 4.2 mmol/L (3.4-5.0)
[2020-06-18] MEDS: ENOXAPARIN 40 MG/0.4 ML SYRINGE SUB-Q (08:40)
[2020-06-18] MEDS: lisinopriL 10 MG TABLET PO (08:40)
[2020-06-18] MEDS: DEXAMETHASONE SOD PHOS INJ 4 MG/ML VIAL 6 MG IV PUSH (08:40)
== END 2020-06-18 11:25 | disposition home or self-care (01) | DRG 177 ==
LOC: ANHED 21:42 → ANH3MEDSUR 06-15 06:45
PROVIDERS: Physician Assistant; Admitting Provider Family Medicine; Emergency Provider Emergency Medicine; PCP Internal Medicine; Visit Provider Family Medicine
DX: U07.1 COVID-19 (principal); J96.01 Acute respiratory failure with hypoxia; J12.89 Other viral pneumonia; E78.5 Hyperlipidemia, unspecified; I10 Essential (primary) hypertension; E66.9 Obesity, unspecified; Z68.30 Body mass index [BMI] 30.0-30.9, adult; Z85.46 Personal history of malignant neoplasm of prostate
CPT/HCPCS: 36415; 36600; 71045; 80048; 80053; 81001; 82375; 82728; 82805; 83036; 83050; 83605; 83615; 83735; 83880; 84460; 84484; 85025; 85027; 85055; 85610; 85730; 86140; 87040; 87804; 93005; 94640; 96365; 96375; 97161; 97165; 99285; A9270; G0378; J0131; J1100; J1650; J7040

== ENCOUNTER 2025-07-01 19:20 | Emergency (ER) | payer MEDICARE, MEDICAID, SELFPAY ==
--- NOTE | 2025-07-01 19:24 | ED.SKABFB ---
HPI - Skin/Abscess/Foreign Bdy General Chief complaint: Skin/Abscess/Foreign Body Stated complaint: rash Time Seen by Provider: 07/01/25 19:32 Source: patient, RN notes reviewed and old records reviewed Mode of arrival: ambulatory Limitations: no limitations History of Present Illness HPI narrative: 69-year-old male presents to the [facility] with a rash to the left flank for 2 days. Denies fevers. Patient reports it as being painful and itching. No treatment prior to arrival Daughter interpreting for patient. Offered train caller service. patient with history of high blood pressure, high cholesterol and Parkinson's disease Onset (ago): day(s) (2) Treatments prior to arrival: none Related Data Home Medications ?Medication ?Instructions ?Recorded ?Confirmed ?Last Taken ?Type lisinopril 10 mg tablet 10 mg PO DAILY 06/15/20 06/15/20 Unknown History meloxicam 7.5 mg tablet 7.5 mg PO DAILY 06/15/20 06/15/20 Unknown History simvastatin 40 mg tablet 20 mg PO DAILY 06/15/20 06/15/20 Unknown History Allergies Allergy/AdvReac Type Severity Reaction Status Date / Time No Known Allergies Allergy Verified 07/01/25 19:30 Review of Systems Review of Systems: All systems reviewed & are unremarkable except as noted in HPI and below Constitutional: Constitutional: Reports no additional constitutional complaints ENT: Reports system reviewed and no additional complaints, except as documented Cardiovascular: Cardiovascular: Reports no additional cardiovascular complaints, Denies chest pain and Denies dyspnea Respiratory: Respiratory: Reports no additional respiratory complaints, Denies chest congestion, Denies cough and Denies dyspnea Musculoskeletal: Musculoskeletal: Reports no additional musculoskeletal complaints Integumentary/Breasts: Skin/Breast: Reports as per HPI ON LICENSE OF [facility] Past Medical History Medical History Parkinsons Hyperlipidemia Prostate cancer Hypertension Surgical History Surgical History H/O prostatectomy Family History Family History Mother Hypertension Father Hypertension Social History Social History Smoking status: Never smoker Alcohol intake: never Substance use: never Substance use type: does not use Living arrangements: with family Gender identity (if verbalized by the patient): Male Sexual Orientation (if Verbalized by the Patient): Straight or Heterosexual Spiritual care concerns: No Comments At the time of my signature, I reviewed and agree with the nursing past medical, surgical, social, and family history. There is no relevant family history pertinent to the patient complaint. Exam Const: General: cooperative, comfortable, no acute distress, well developed, alert and well nourished Nutritional Appearance: well nourished Limitations: no limitations HENMT: Head: normal to inspection Mouth: Yes Normal oral and palatal mucosa present, Yes lip normal, Yes tongue normal and Yes moist mucous membranes Eyes: General: appearance normal, both eyes and all related structures Alignment and Position: alignment normal Neck: Neck: normal visual inspection, full ROM, no lymphadenopathy and no meningeal signs Chest: Chest palpation & inspection: normal inspection of the chest Resp: Effort & Inspection: normal respiratory effort and able to speak in complete sentences Auscultation: clear to auscultation bilaterally, no crackles, no rales, no rhonchi and no wheezes Cardio: Rate: regular rate GI: GI Palp: No abdominal tenderness Skin: General skin exam: normal color and no rashes or lesions noted Rashes: rashes noted ( left upper abdomen shows around to the back) Other: patient with a rash, dried, scabbing over. Area from mid abdomen wrap around to back ending at the spine, does not cross midline Neuro: General: patient oriented x3, gait normal, moves all extremities and no meningeal signs Cognition (Neuro): normal cognition Speech: normal speech Gait exam (Neuro): Normal gait present Extrem: General: normal to inspection, full ROM, capillary refill normal and normal gait Psych: Appearance: grossly normal and well kempt Mental Status: mental status grossly normal Speech and movement: Normal speech and movement present and Clear speech present Affect: normal affect Attitude: cooperative Course Course Level of Care: Express Care Visit Vital Signs Vital signs: Vital Signs Temperature 98.9 F 07/01/25 19:31 Pulse Rate 72 07/01/25 19:31 Respiratory Rate 16 07/01/25 19:31 Blood Pressure 125/82 07/01/25 19:31 Pulse Oximetry 100 07/01/25 19:31 Oxygen Delivery Room Air 07/01/25 19:31 Temperature 98.9 F 07/01/25 19:31 Pulse Rate 72 07/01/25 19:31 Respiratory Rate 16 07/01/25 19:31 Blood Pressure 125/82 07/01/25 19:31 Pulse Oximetry 100 07/01/25 19:31 Oxygen Delivery Room Air 07/01/25 19:31 reviewed MDM MDM Narrative Medical decision making narrative: patient sitting in exam. Patient is nontoxic, vitals stable. Patient presents with a rash for 2 days. Will prescribe antiviral. Patient is appropriate for outpatient treatment with close follow-up Discharge instructions reviewed with patient, as well as provided in writing per nursing staff. The instructions also include specific and strict return/GO TO THE ER as well as f/u information. All questions have been answered, and the patient deny any further questions with discharge and discharge plan. Some parts of this dictation were generated by voice recognition software and may contain typographical and/or grammatical inaccuracies. Differential Diagnosis Differential Diagnosis: Differential diagnostic considerations for skin/abscess/foreign body issues include abscess of skin or subcutaneous tissue, viral exanthem, dermatophytosis, urticaria, herpes zoster, allergic reaction to drug, cellulitis, eczema, insect bites, impetigo, contact dermatitis, vasculitis. Medical Records I have reviewed the following patient records and this information was taken into consideration when formulating the assessment and plan.: previous ER visits Discharge Plan Discharge Clinical Impression: Shingles Qualifiers: Herpes zoster complications: without complications Qualified Code(s): B02.9 - Zoster without complications Patient Disposition: Home Condition: Stable Instructions: Shingles (ED) Additional Instructions: Keep area clean and dry. Please follow-up with primary care provider this week for new or worsening symptoms go directly to emergency room Patient Language: Italian Prescriptions: New acyclovir 800 mg tablet See Rx Instructions .ROUTE .COMPLEX 7 Days Qty: 35 0RF Rx Instructions: 800 mg orally 5 times per day No Action simvastatin 40 mg tablet 20 mg PO DAILY Rx Instructions: With Dinner meloxicam 7.5 mg tablet 7.5 mg PO DAILY Rx Instructions: After Meal lisinopril 10 mg tablet 10 mg PO DAILY albuterol sulfate 90 mcg/actuation aerosol powdr breath activated 2 inh inhalation Q6H PRN (Reason: shortness of breath or wheezing) Qty: 1 0RF Follow-up/Referrals: UNKNOWN,DOCTOR [Non-Staff] Time of Disposition: 19:43
[2025-07-01 19:31] VITALS: BP 125/82; PULSE 72; RESP 16; TEMP 37.2; O2SAT 100
== END 2025-07-01 19:53 | disposition home or self-care (01) ==
PROVIDERS: Emergency Provider Nurse Practitioner; PCP Emergency Medicine
DX: B02.9 Zoster without complications (principal); G20.A1 Parkinson's disease without dyskinesia, without mention of fluctuations; I10 Essential (primary) hypertension; E78.5 Hyperlipidemia, unspecified; Z85.46 Personal history of malignant neoplasm of prostate; Z90.79 Acquired absence of other genital organ(s)
CPT/HCPCS: 99213; G0463